=== PATIENT | male | born 2000 ===

== ENCOUNTER 2021-05-28 14:37 | Emergency (ER) | payer SELFPAY ==
[~2021-05-28] VITALS: Ht 170.2 cm; Wt 70.3 kg
[2021-05-28 14:41] VITALS: BP 135/90
== END 2021-05-28 17:11 | disposition home or self-care (01) ==
LOC: ER 14:37
DX: J20.9 Acute bronchitis, unspecified (principal); F12.10 Cannabis abuse, uncomplicated
CPT/HCPCS: 71046